=== PATIENT | male | born 1990 | race Two or more races ===

== ENCOUNTER 2020-01-23 14:37 | Inpatient (IN) | payer OTHER ==
--- NOTE | 2020-01-23 14:56 | BHS.RME ---
Substance Use & Tx History - Last Treatment Date of last treatment: 1st [facility] visit
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
[2020-01-23] MEDS ORDERED: BISMUTH SUBSALICYLATE 524 MG/30 ML UD PO PRN (16:28)
[2020-01-23] MEDS ORDERED: ACETAMINOPHEN 325 MG TABLET (FP) PO PRN ×2 (16:28)
[2020-01-23] MEDS ORDERED: MENTHOL/PHENOL 1 EACH UD MM PRN (16:28)
[2020-01-23] MEDS ORDERED: ONDANSETRON *ODT* 4 MG TABLET SL ONE ×2 (16:28)
[2020-01-23] MEDS ORDERED: MAGNESIUM CITRATE 300 ML BOTTLE PO PRN (16:28)
[2020-01-23] MEDS ORDERED: chlordiazePOXIDE HCL 25 MG CAPSULE PO PRN (16:28)
[2020-01-23] MEDS ORDERED: NICOTINE POLACRILEX 2 MG GUM BUC PRN (16:28)
[2020-01-23] MEDS ORDERED: IBUPROFEN 400 MG TABLET (FP) PO PRN (16:28)
[2020-01-23] MEDS ORDERED: MAG HYDROX/AL HYDROX/SIMETH 30 ML UNIT-DOSE CUP PO PRN (16:28)
[2020-01-23] MEDS ORDERED: METHOCARBAMOL 500 MG TABLET PO PRN (16:28)
[2020-01-23] MEDS ORDERED: MAGNESIUM HYDROX 2400MG/30ML ORAL SUSPENSION 30 ML CUP PO PRN (16:28)
[2020-01-23] MEDS ORDERED: NICOTINE 7 MG/24 HOURS TOPICAL PATCH TD SCH ×2 (16:30→16:39)
[2020-01-23] MEDS ORDERED: ONDANSETRON *ODT* 4 MG TABLET SL PRN (16:48)
[2020-01-23] MEDS ORDERED: chlordiazePOXIDE HCL 25 MG CAPSULE PO SCH (17:00)
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
[2020-01-23] MEDS ORDERED: hydrOXYzine PAMOATE 25 MG CAPSULE (FP) PO SCH (18:00)
[2020-01-23 18:39] VITALS: BMI 27.5
[2020-01-23] MEDS: PRENATAL VITAMINS W/ FOLIC ACID TABLET (FP) PO SCH (20:03)
[2020-01-23] MEDS: chlordiazePOXIDE HCL 25 MG CAPSULE PO SCH (22:16)
[2020-01-23] MEDS: MELATONIN 5 MG TABLETS PO SCH (22:16)
[2020-01-23] MEDS: THIAMINE HCL 100 MG TABLET (FP) PO SCH (22:16)
[2020-01-24] MEDS: chlordiazePOXIDE HCL 25 MG CAPSULE PO SCH ×4 (05:19→22:20)
[2020-01-24] MEDS ORDERED: METHADONE HCL 10 MG TABLET PO ONE ×2 (09:26→10:51)
[2020-01-24] MEDS: PRENATAL VITAMINS W/ FOLIC ACID TABLET (FP) PO SCH (10:41)
[2020-01-24] MEDS ORDERED: METHADONE 120 MG, METHADONE 20 MG PO ONE (10:51)
[2020-01-24] MEDS ORDERED: METHADONE HCL 10 MG TABLET ONE (11:38)
[2020-01-24] MEDS ORDERED: METHADONE HCL 40 MG DISPERSABLE TABLET ONE (11:39)
--- NOTE | 2020-01-24 11:53 | EKG ---
Test Reason : Blood Pressure : / mmHG Vent. Rate : 045 BPM Atrial Rate : 045 BPM P-R Int : 154 ms QRS Dur : 086 ms QT Int : 512 ms P-R-T Axes : 054 045 035 degrees QTc Int : 442 ms SINUS BRADYCARDIA POSSIBLE LEFT ATRIAL ENLARGEMENT BORDERLINE ECG NO PREVIOUS ECGS AVAILABLE Confirmed by LUCIA CODY MD ([id number]) on 01/24/2020 11:53:05 AM Referred By: Confirmed By:LUCIA CODY MD
[2020-01-24 12:51] LABS: HEMATOCRIT 37.8 % (35.4-49); HEMOGLOBIN 12.1 GM/dL (11.7-16.9); MCHC 31.9 g/dl (32.0-35.9); MEAN CELL VOLUME 87.6 fl (80-96); MEAN PLT VOLUME 10.4 fl (7.5-11.1); PLATELET COUNT 164 K/MM3 (134-434); RBC 4.31 M/mm3 (4.00-5.60); RDW 15.3 % (11.9-15.9); WHITE BLOOD COUNT 4.4 K/mm3 (4.0-10.0)
[2020-01-24 12:59] LABS: BILIRUBIN,TOTAL 0.2 mg/dL (0.2-1); BLOOD UREA NITROGEN 12.9 mg/dL (7-18); CALCIUM 8.3 mg/dL (8.5-10.1); CREATININE 0.9 mg/dL (0.55-1.3); POTASSIUM 4.4 mmol/L (3.5-5.1); TOT PROT 6.4 g/dl (6.4-8.2)
--- NOTE | 2020-01-24 13:07 | PN ---
S CIWA - CIWA Score Nausea/Vomitin-Mild Nausea/No Vomiting Muscle Tremors: 2 Anxiety: 3 Agitation: 2 Paroxysmal Sweats: No Perspiration Orientation: 0-Oriented Tacttile Disturbances: 1-Very Mild Itch/Numbness Auditory Disturbances: 0-None Visual Disturbances: 2-Mild Sensitivity Headache: 1-Very Mild CIWA-Ar Total Score: 12 BHS Progress Note (SOAP) Subjective: 29 years old male admitted on 01/23/20 for benzo withdrawal sx management treating with librium detox regiment received methadone 130 mg po yesterday 140mg po begin today as per methadone verification by the nurse left 5th finger sutures intact encourage keep area clean and dry free from irritation clear with soap and water pad dry cover with sterile dressing as per instruction Objective: 01/24/20 13:06 Vital Signs - 24 hr 01/23/20 01/23/20 01/23/20 18:07 19:17 20:27 Temperature 98.2 F 97.3 F L 97.1 F L Pulse Rate 51 L 55 L 56 L Respiratory 18 17 18 Rate Blood Pressure 101/51 L 116/69 114/59 L O2 Sat by Pulse 100 99 Oximetry (%) 01/24/20 01/24/20 06:20 09:00 Temperature 97.1 F L 96.9 F L Pulse Rate 50 L 44 L Respiratory 18 18 Rate Blood Pressure 102/60 97/62 O2 Sat by Pulse 97 Oximetry (%) Laboratory Tests 01/24/20 01/24/20 01/24/20 09:45 09:45 09:45 WBC 4.4 RBC 4.31 Hgb 12.1 Hct 37.8 MCV 87.6 MCH 28.0 MCHC 31.9 L RDW 15.3 Plt Count 164 MPV 10.4 Sodium 138 Potassium 4.4 Chloride 105 Carbon Dioxide 30 Anion Gap 3 L BUN 12.9 Creatinine 0.9 Est GFR (CKD-EPI)AfAm 132.37 Est GFR (CKD-EPI)NonAf 114.21 Random Glucose 86 Calcium 8.3 L Total Bilirubin 0.2 AST 15 ALT 20 Alkaline Phosphatase 79 Total Protein 6.4 Albumin 3.0 L Hepatitis C Genotype Cancelled hcv diagnostic result pending Assessment: 01/24/20 13:07 benzo withdrawal Plan: librium regiment
--- NOTE | 2020-01-24 13:08 | CONSULT ---
[facility] Psychiatric Consult - Data Date of interview: 01/23/10 Admission source: [facility] Identifying data: Assistant Professor Of Biology approached patient twice for psychiatric consultation. Patient presents as lethargic and fatigue. Mr. Morse stated to report writer , " I do not need to talk to you." Psychiatric consultation refused. Please order another psychiatric consultation if requested by patient.
[2020-01-24] MEDS ORDERED: MASKS NR ONE (13:47)
[2020-01-24] MEDS: hydrOXYzine PAMOATE 25 MG CAPSULE (FP) PO PRN ×2 (15:09→22:20)
[2020-01-24] MEDS: BACITRACIN/POLYMYXIN B SULFATE 15 GM TUBE TP SCH (22:18)
[2020-01-24] MEDS: MELATONIN 5 MG TABLETS PO SCH (22:20)
[2020-01-24] MEDS: THIAMINE HCL 100 MG TABLET (FP) PO SCH (22:20)
[2020-01-25] MEDS ORDERED: METHADONE HCL 10 MG TABLET ONE (04:02)
[2020-01-25] MEDS ORDERED: METHADONE HCL 40 MG DISPERSABLE TABLET ONE (04:03)
[2020-01-25] MEDS ORDERED: METHADONE HCL 10 MG TABLET PO SCH ×2 (06:00)
[2020-01-25] MEDS ORDERED: METHADONE 120 MG, METHADONE 20 MG PO SCH (06:00)
[2020-01-25] MEDS: chlordiazePOXIDE HCL 25 MG CAPSULE PO SCH ×3 (06:03→17:42)
[2020-01-25] MEDS: PRENATAL VITAMINS W/ FOLIC ACID TABLET (FP) PO SCH (10:17)
[2020-01-25] MEDS: BACITRACIN/POLYMYXIN B SULFATE 15 GM TUBE TP SCH (10:17)
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
[2020-01-25 12:41] VITALS: TEMP 97.3
--- NOTE | 2020-01-25 16:39 | PN ---
[facility] Progress Note Note: Psychiatry Attending's note (follow-up) : Vender is observed walking around the unit. He continues to decline psychiatric consultation. Mr Morse remains calm and approachable. Patient exhibits good personal hygiene. Seen wearing casual, clean hospital gowns. No sexual acting out reported at this time. Mr Morse did not masturbate in public. Behavior occurred in the patient's room. Discussed with patient's nurse. See notes. Patient is compliant with detoxification protocol. Cognitively intact. No acute issues to report.
[2020-01-25 17:52] VITALS: BP 111/65; PULSE 49
--- NOTE | 2020-01-25 19:04 | DS ---
[facility] Detox Discharge Summary Admission Date: 01/23/20 Discharge Date: 01/25/20 - History Additional Comments: Patient is being discharged administratively for extreme outrageous, disruptive behavior and threatening other patients stating that he will commit mass murder. Patient had refused psych. evaluation. He is a threat to staff and other patients. Patient in [id number] ( Ms. Ana Arias ) wrote a letter that she witnessed him making threats to kill people. He is to be transferred to [facility] for further evaluation. Due to his unpredictable behavior, [address] Byrd notified. Discharge completed in 30 minutes Pertinent Past History: Alcohol dependence Benzodiazepine dependence Cocaine dependence Marijuana dependence PCP dependence - Physical Exam Results Vital Signs: Vital Signs Temperature 97.3 F L 01/25/20 17:00 Pulse Rate 49 L 01/25/20 17:00 Respiratory Rate 18 01/25/20 17:00 Blood Pressure 111/65 01/25/20 17:00 O2 Sat by Pulse Oximetry (%) 98 01/25/20 12:37 Laboratory Last Values WBC 4.4 K/mm3 (4.0-10.0) 01/24/20 09:45 RBC 4.31 M/mm3 (4.00-5.60) 01/24/20 09:45 Hgb 12.1 GM/dL (11.7-16.9) 01/24/20 09:45 Hct 37.8 % (35.4-49) 01/24/20 09:45 MCV 87.6 fl (80-96) 01/24/20 09:45 MCH 28.0 pg (25.7-33.7) 01/24/20 09:45 MCHC 31.9 g/dl (32.0-35.9) L 01/24/20 09:45 RDW 15.3 % (11.9-15.9) 01/24/20 09:45 Plt Count 164 K/MM3 (134-434) 01/24/20 09:45 MPV 10.4 fl (7.5-11.1) 01/24/20 09:45 Sodium 138 mmol/L (136-145) 01/24/20 09:45 Potassium 4.4 mmol/L (3.5-5.1) 01/24/20 09:45 Chloride 105 mmol/L (98-107) 01/24/20 09:45 Carbon Dioxide 30 mmol/L (21-32) 01/24/20 09:45 Anion Gap 3 MMOL/L (8-16) L 01/24/20 09:45 BUN 12.9 mg/dL (7-18) 01/24/20 09:45 Creatinine 0.9 mg/dL (0.55-1.3) 01/24/20 09:45 Est GFR (CKD-EPI)AfAm 132.37 01/24/20 09:45 Est GFR (CKD-EPI)NonAf 114.21 01/24/20 09:45 Random Glucose 86 mg/dL (74-106) 01/24/20 09:45 Calcium 8.3 mg/dL (8.5-10.1) L 01/24/20 09:45 Total Bilirubin 0.2 mg/dL (0.2-1) 01/24/20 09:45 AST 15 U/L (15-37) 01/24/20 09:45 ALT 20 U/L (13-61) 01/24/20 09:45 Alkaline Phosphatase 79 U/L (45-117) 01/24/20 09:45 Total Protein 6.4 g/dl (6.4-8.2) 01/24/20 09:45 Albumin 3.0 g/dl (3.4-5.0) L 01/24/20 09:45 Syphilis Serology Non-reactive (NONREACTIVE) 01/24/20 09:45 COVID-19 (THERON) Not detected (Not Detected) 01/23/20 18:25 Hep C Ab Diagnostic 0.1 s/co ratio (0.0-0.9) 01/24/20 09:45 Hepatitis C Genotype Cancelled 01/24/20 09:45 Pertinent Admission Physical Exam Findings: Alcohol withdrawal symptoms Benzodiazepine withdrawal symptoms - Medication Discharge Medications: Ambulatory Orders NK [No Known Home Medication] 01/23/20 - Diagnosis (1) Alcohol dependence with intoxication with complication Status: Chronic (2) Benzodiazepine dependence Status: Chronic (3) Cocaine dependence Status: Chronic (4) Marihuana dependence Status: Chronic (5) Methadone maintenance therapy patient Status: Chronic - AMA Did Patient Leave Against Medical Advice: No (ADMINISTRATIVELY DISCHARGED)
[2020-01-26] MEDS ORDERED: chlordiazePOXIDE HCL 10 MG CAPSULE PO PRN
[2020-01-26] MEDS ORDERED: chlordiazePOXIDE HCL 10 MG CAPSULE PO SCH (05:00)
[2020-01-27] MEDS ORDERED: chlordiazePOXIDE HCL 10 MG CAPSULE PO SCH (05:00)
[2020-01-28] MEDS ORDERED: chlordiazePOXIDE HCL 10 MG CAPSULE PO ONE (05:00)
== END 2020-01-25 19:20 | disposition short-term general hospital (02) | DRG 774 ==
LOC: YASAS 14:37 → Y3N 18:07
PROVIDERS: ADMIT Allergy & Immunology; ATTEND Allergy & Immunology
PROC: HZ2ZZZZ Detoxification Services for Substance Abuse Treatment (ICD-10-PCS; principal; 2020-01-23)
DX: F10.230 Alcohol dependence with withdrawal, uncomplicated (principal); F12.20 Cannabis dependence, uncomplicated; F13.230 Sedative, hypnotic or anxiolytic dependence with withdrawal, uncomplicated; F14.20 Cocaine dependence, uncomplicated; F16.20 Hallucinogen dependence, uncomplicated; F17.210 Nicotine dependence, cigarettes, uncomplicated; F41.8 Other specified anxiety disorders; F32.9 Major depressive disorder, single episode, unspecified; M54.5 Low back pain; G89.29 Other chronic pain; S61.217D Laceration without foreign body of left little finger without damage to nail, subsequent encounter; X99.8XXD Assault by other sharp object, subsequent encounter
CPT/HCPCS: 36415; 71046-TC-FY; 80053; 85027; 86780; 86803; 93005; 93010; U0003